=== PATIENT | male | born 1995 | race Caucasian/White ===

== ENCOUNTER 2017-10-18 09:48 | Emergency (ER) | payer OTHER, SELFPAY ==
[2017-10-18 10:31] LABS: BEDSIDE GLUCOSE 98 MG/DL (70-105)
== END 2017-10-18 11:09 | disposition home or self-care (01) ==
LOC: M ED 09:48
DX: J06.9 Acute upper respiratory infection, unspecified (principal)
CPT/HCPCS: 87880

== ENCOUNTER 2017-11-12 11:12 | Day surgery (SDC) | payer BC, OTHER ==
[2017-11-12] MEDS: NS 1,000 ML IV ×2 (11:45→17:28)
[2017-11-12 11:58] LABS: KETONE, URINE AUTO RFX NEGATIVE (NEGATIVE); LEUKOCYTE ESTERASE UR AUTO RFX NEGATIVE (NEGATIVE); MUCUS, URINE RFX SMALL (NEGATIVE); NITRITE, URINE AUTO RFX NEGATIVE (NEGATIVE); RBC, URINE AUTO RFX 0 /HPF (0-3); SPECIFIC GRAVITY UR AUTO RFX 1.023 (1.002-1.035); SQUAM EPITHELIAL CELL UR AURFX 0 /HPF (0-6); WBC, URINE AUTO RFX 0 /HPF (0-3)
[2017-11-12] MEDS: ONDANSETRON 4MG/2ML VIAL (J2405) IV ×2 (12:02→14:11)
[2017-11-12] MEDS: MORPHINE 4 MG/ML 1ML VIAL/SYRINGE (J2270) IV ×2 (12:02→13:53)
[2017-11-12 12:14] LABS: BASO # 0.1 10^3/uL (0.0-0.2); BASO % 0.4 % (0.0-1.0); EOS % 0.1 % (0.0-3.0); HEMOGLOBIN 16.8 g/dl (13.5-17.5); IMMATURE GRANULOCYTE % 0.7 % (0-3.0); LYMPH # 1.7 10^3/uL (1.5-6.5); LYMPH % 7.1 % (24.0-44.0); MEAN CORPUSCULAR HEMOGLOBIN 32.7 pg (27.0-33.0); MEAN CORPUSCULAR HGB CONC 36.5 g/dl (32.0-36.5); MEAN CORPUSCULAR VOLUME 89.7 fl (80.0-96.0); MONO # 1.4 10^3/uL (0.0-0.8); MONO % 5.8 % (0.0-5.0); NEUTROPHILS # 20.6 10^3/uL (1.8-7.7); NEUTROPHILS % 85.9 % (36.0-66.0); PLATELET COUNT, AUTOMATED 257 10^3/uL (150-450); RED BLOOD COUNT 5.13 10^6/uL (4.30-6.10); RED CELL DISTRIBUTION WIDTH 11.8 % (11.5-14.5); WHITE BLOOD COUNT 23.9 10^3/uL (4.0-10.0)
[2017-11-12 12:37] LABS: ALBUMIN 4.3 GM/DL (3.2-5.2); ALBUMIN/GLOBULIN RATIO 1.13 (1.00-1.93); ALKALINE PHOSPHATASE 109 U/L (45-117); ALT/SGPT 65 U/L (12-78); AMYLASE 38 U/L (25-115); ANION GAP 8 MEQ/L (8-16); AST/SGOT 24 U/L (7-37); BILIRUBIN,DIRECT 0.2 MG/DL (0.0-0.2); BILIRUBIN,TOTAL 1.2 MG/DL (0.2-1.0); BLOOD UREA NITROGEN 17 MG/DL (7-18); CALCIUM LEVEL 8.5 MG/DL (8.5-10.1); CARBON DIOXIDE LEVEL 25 MEQ/L (21-32); CHLORIDE LEVEL 106 MEQ/L (98-107); CREATININE FOR GFR 0.95 MG/DL (0.70-1.30); GLUCOSE, FASTING 115 MG/DL (70-100); LIPASE 90 U/L (73-393); SODIUM LEVEL 139 MEQ/L (136-145); TOTAL PROTEIN 8.1 GM/DL (6.4-8.2)
[2017-11-12] MEDS ORDERED: ISOVUE-370 76% 100ML VIAL (Q9967) As Ordered (12:38)
[2017-11-12] MEDS: PIPERACILLIN/TAZOBACTAM SOD 3.375 GM in APPROPRIATE DILUENT 1 EA IV ×2 (13:53→19:44)
[2017-11-12] MEDS ORDERED: dexameTHASONE 4 MG/ML 1ML VIAL (J1100) As Ordered (14:54)
[2017-11-12] MEDS ORDERED: LIDOCAINE 2% INJ 100 MG/5 ML SDV (FOR ANES.) As Ordered (14:54)
[2017-11-12] MEDS ORDERED: MIDAZOLAM INJ 2 MG/2 ML VIAL (J2250) As Ordered (14:54)
[2017-11-12] MEDS ORDERED: ROCURONIUM BROMIDE 50 MG/5 ML VIAL As Ordered (14:54)
[2017-11-12] MEDS ORDERED: fentaNYL 250 MCG/5 ML INJECTION (J3010) As Ordered (14:54)
[2017-11-12] MEDS ORDERED: PROPOFOL 200 MG/20 ML VIAL As Ordered (14:54)
[2017-11-12] MEDS ORDERED: SUCCINYLCHOLINE 100 MG/5 ML SYRINGE (J0330) As Ordered (14:54)
[2017-11-12] MEDS ORDERED: ALBUTEROL 6.7GM INHALER **FOR ANES. CART/OMNICELL ONLY As Ordered (14:55)
[2017-11-12] MEDS: BUPIVACAINE HCL 0.25% 30 ML VIAL As Ordered (15:05)
[2017-11-12] MEDS ORDERED: PHENYLephrine HCL 500 MCG/5 ML (100MCG/ML) SYRINGE (J2370) As Ordered (15:08)
[2017-11-12] MEDS ORDERED: ONDANSETRON 4MG/2ML VIAL (J2405) As Ordered (15:23)
[2017-11-12] MEDS ORDERED: KETOROLAC 60 MG/2 ML VIAL (J1885) As Ordered (15:27)
[2017-11-12] MEDS ORDERED: NEOSTIGMINE 10 MG/10 ML VIAL (J2710) As Ordered (15:29)
[2017-11-12] MEDS ORDERED: GLYCOPYRROLATE INJ 0.2 MG/ML 2 ML VIAL As Ordered (15:29)
[2017-11-12] MEDS ORDERED: MORPHINE 4 MG/ML 1ML VIAL/SYRINGE (J2270) IV (16:00)
[2017-11-12] MEDS ORDERED: ONDANSETRON 4MG/2ML VIAL (J2405) IV ×2 (16:00→16:15)
[2017-11-12] MEDS ORDERED: KETOROLAC 30 MG/ML VIAL (J1885) IV (16:00)
[2017-11-12] MEDS ORDERED: PROMETHAZINE INJ 25 MG/ML VIAL (J2550) IV (16:00)
[2017-11-12] MEDS ORDERED: PERCOCET 5MG/325MG TAB PO (16:15)
[2017-11-12] MEDS ORDERED: HYDROmorphone HCL 1 MG/ML SYRINGE (J1170) IV (16:15)
[2017-11-12] MEDS ORDERED: METOCLOPRAMIDE INJ 10MG/2ML VIAL (J2765) IV (16:15)
[2017-11-12] MEDS: LR 1,000 ML IV (16:15)
[2017-11-12] MEDS ORDERED: fentaNYL 100 MCG/2 ML INJECTION (J3010) IV (16:15)
[2017-11-12] MEDS: IPRATROPIUM 0.5MG/ALBUTEROL 2.5MG INH SOL UD 3ML (DUONEB)(J7620) NEB ×2 (17:54→21:05)
[2017-11-12] MEDS: NORCO, ANEXSIA 5/325MG TABLET (HYDROcodone/ACETAMINOPHEN) PO (19:44)
[2017-11-13] MEDS: PIPERACILLIN/TAZOBACTAM SOD 3.375 GM in APPROPRIATE DILUENT 1 EA IV ×3 (01:38→13:34)
[2017-11-13] MEDS: NORCO, ANEXSIA 5/325MG TABLET (HYDROcodone/ACETAMINOPHEN) PO ×2 (01:43→12:55)
[2017-11-13] MEDS: IPRATROPIUM 0.5MG/ALBUTEROL 2.5MG INH SOL UD 3ML (DUONEB)(J7620) NEB ×3 (08:21→16:00)
[2017-11-13] MEDS ORDERED: AUGMENTIN 875 MG TAB PO (21:00)
== END 2017-11-13 16:07 | disposition home or self-care (01) ==
LOC: M SDC 11-13 16:07 → M ED 11:12 → M SDC 14:00 → M PED 16:40
DX: K35.80 Unspecified acute appendicitis (principal); J45.909 Unspecified asthma, uncomplicated; E66.9 Obesity, unspecified; Z68.34 Body mass index [BMI] 34.0-34.9, adult
CPT/HCPCS: 44970

== ENCOUNTER → 2021-08-13 | Outpatient (REF) | payer BC ==
[~2021-08-13] MED LIST: AFRI0.0511; AMOX875T2 PO; BENZ200C70 PO; HYDR-3715 PO; MUCI600T37 PO; VENTAER
== END ==
LOC: M LAB REF 15:35
PROVIDERS: ATTEND Physician Assistant
DX: J01.90 Acute sinusitis, unspecified (principal)

== ENCOUNTER 2025-02-18 10:52 | Day surgery (SDC) | payer OTHER ==
[~2025-02-18] VITALS: Ht 177.8 cm; Wt 141.7 kg
[~2025-02-18 10:52] MED LIST changes: +VENTAER INH
[2025-02-18] MEDS ORDERED: LR 1,000 ML IV SCH ×2 (11:25→15:55)
[2025-02-18] MEDS ORDERED: MIDAZOLAM INJ 2 MG/2 ML VIAL As Ordered ONE (12:58)
[2025-02-18] MEDS ORDERED: ROCURONIUM BROMIDE 50MG/5ML VIAL As Ordered ONE (13:00)
[2025-02-18] MEDS ORDERED: dexAMETHasone 4 MG/ML 1 ML VIAL As Ordered ONE (13:31)
[2025-02-18] MEDS ORDERED: LIDOCAINE 2% 100 MG/5 ML SDV (FOR ANES.) As Ordered ONE (13:31)
[2025-02-18] MEDS ORDERED: ACETAMINOPHEN 1000MG/100ML IV BAG As Ordered ONE (13:33)
[2025-02-18] MEDS ORDERED: LABETALOL 100 MG/20 ML VIAL As Ordered ONE (13:40)
[2025-02-18] MEDS ORDERED: HYDROmorphone HCL 2 MG/ML 1 ML VIAL As Ordered ONE (13:57)
[2025-02-18] MEDS ORDERED: SUGAMMADEX SODIUM 500 MG/5 ML VIAL As Ordered ONE (14:15)
[2025-02-18] MEDS ORDERED: HYDROMORPHONE HCL 0.5 MG/0.5 ML SYRINGE IV PRN (14:20)
[2025-02-18] MEDS: HYDROcodone/APAP LIQUID 7.5-325 MG 15 ML UDC PO PRN (15:58)
[2025-02-18 16:45] VITALS: BP 121/76; TEMP 97.3; O2SAT 98
== END 2025-02-18 16:47 | disposition home or self-care (01) ==
LOC: M SDC 10:52
PROVIDERS: ATTEND Otolaryngology
DX: J35.3 Hypertrophy of tonsils with hypertrophy of adenoids (principal); J45.909 Unspecified asthma, uncomplicated; Z79.51 Long term (current) use of inhaled steroids; K21.9 Gastro-esophageal reflux disease without esophagitis
CPT/HCPCS: 42821; 88302; J0131; J0665; J1100; J1171; J1920; J2250; J3010